=== PATIENT | male | born 1995 | race Caucasian/White ===

== ENCOUNTER 2018-09-16 21:17 | Emergency (ER) | payer SELFPAY ==
[~2018-09-16] VITALS: Ht 180.3 cm; Wt 99.3 kg
[~2018-09-16 21:17] MED LIST: ASPIRIN325 MG PO
[2018-09-16 21:24] VITALS: BP 119/83; Ht 180.3 cm; Wt 99.3 kg
== END 2018-09-16 21:55 | disposition home or self-care (01) ==
LOC: ED 21:17
DX: J11.1 Influenza due to unidentified influenza virus with other respiratory manifestations (principal)